=== PATIENT | female | born 1990 | race Two or more races ===

== ENCOUNTER 2025-09-05 10:10 | Outpatient (AMB) | payer OTHER, SELFPAY ==
--- NOTE | 2025-09-05 10:11 | MHC.OFFVIS ---
Vital Signs 09/05/25 10:18 Height 5 ft 2 in Weight 225 lb BMI 41.1 BP 102/78 Blood Pressure Location Rt brachial Position Sitting Respiration 16 Pulse 94 Pulse Source Pulse Oximeter Pulse Oximetry (%) 98 Oxygen Delivery Method Room Air Intake Visit Reasons: Re-Establish Care - Migraine Hvac Field Service Technician Required: No Allergies acetaminophen (From Vicodin) Allergy (Unknown, Verified 09/05/25 10:18) Unknown hydrocodone (From Vicodin) Allergy (Unknown, Verified 09/05/25 10:18) Unknown acetaminophen/codeine Allergy (Unknown, Uncoded 09/05/25 10:18) Unknown Medication List - Last Reconciled 09/05/25 by Alisha Gibson, CARLA acetazolamide ER 500 mg PO DAILY 30 days cetirizine 10 mg PO DAILY PRN cyclosporine 0.05% (Restasis) 1 drp ophthalmic (eye) BID drospirenone (contraceptive) (Slynd) 1 tab PO DAILY gabapentin 300 mg PO TID propranolol mg PO HPI Comments Details: Pietro is a 34-year-old female patient with a past medical history of anxiety, arthritis, cervical disc disease, BRITTON untreated, PCOS, and obesity presented today to establish care here at [facility]. I was previously following her at [facility]. To review, her headaches began a few years ago proximally 1 year after having a neck surgery. Her headaches have been almost daily associated with nausea, light sensitivity, and dizziness. She has historically had pain to the bifrontal areas and retro-orbital areas with sensations of eye pressure. Her eye exams have been reassuring in terms of disc edema. 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 Her prior workup has included an MRI of the brain and an MRA of the head which were performed 02/29/2024. Both these were normal studies. She did have a lumbar puncture with opening pressure of 29 in the past however this was in the setting of BRITTON and elevated BMI which can affect this value. She was however subsequently started on acetazolamide 250 mg twice daily for a trial. She has some paresthesias and had difficulty tolerating the medication though was able to continue on 250 mg twice daily. Her headaches are also accompanied by occipital notch tenderness and she has responded well in the past to occipital nerve blocks. Sleep has also been difficult and in the past she has had sleep studies significant for BRITTON. She says sleep Medicine in March of 2024 but was not able to tolerate CPAP therapy. For further prevention, she has been started on propranolol 10 maneuver limbs twice daily though it was not clear that there was any major benefit with this. We did discuss Botox therapy has a possibility moving forward. She was to continue on the propranolol in his acetazolamide until we could reestablish care here at [facility]. She tells me that she went to the eye doctor last week. She was told that she did not have abnormal pressure in her eyes but there was some noteworthy changes in the pressure of her blood vessels in her eyes. She has not been taking her acetaolemide in about 1 month as she had run out of refills and was not sure where to request them. She is currently experiencing holocephalic headaches described as a pressure sensation all around her head with particular pain to the occipital areas. She has light and sound sensitivity as well as some pulsatile tinnitus at times. She has not had any significant vision changes. She does have some mild worsening of headaches with a laying position. Past medication trials: Propranolol Acetazolamide Topiramate Gabapentin [facility] Medical History (Updated 09/05/25 @ 10:53 by Alisha Gibson CNP) Severe obesity PCOS (polycystic ovarian syndrome) BRITTON (obstructive sleep apnea) Chronic neck pain Migraine Surgical History (Updated 07/24/25 @ 09:38 by Berta Solares [facility]) S/P tonsillectomy and adenoidectomy S/P cervical discectomy Review of Systems Const All systems reviewed & are unremarkable except as noted in HPI and below Physical Exam Vital Signs: Last Vital Signs Pulse 94 09/05/25 10:18 Resp 16 09/05/25 10:18 BP 102/78 09/05/25 10:18 Pulse Ox 98 09/05/25 10:18 Oxygen Delivery Method Room Air 09/05/25 10:18 BMI result Body Mass Index 41.1 Const General: cooperative, healthy appearing, comfortable and no acute distress Nutritional Appearance: well nourished Orientation/consciousness: patient oriented x3 Limitations: no limitations HEENT Head: Yes normal to inspection and Yes normocephalic Eyes Other: Attempt at a funduscopic exam was unsuccessful. Difficulty seeing the back of the eye with traditional ophthalmoscope. (I will be obtaining notes from her recent ophthalmology exam). General: appearance normal, both eyes and all related structures Visual Pritchett: normal visual pritchett by confrontation Alignment and Position: alignment normal Periorbital: periorbital findings normal Eyelids: Yes eyelids normal Conjunctivae: conjunctivae normal Sclerae: sclerae normal Direct Ophthalmoscopy: normal light reflex Back/Spine/Pelvis Other: Bilateral occipital notch tenderness and trapezius tightening Neuro General: patient oriented x3 and deep tendon reflexes 2+ bilaterally Cranial nerves: Yes CN's II-XII intact bilaterally and Yes Facial sensation intact/muscles of mastication intact Cognition (Neuro): normal cognition Gait exam (Neuro): Normal gait present Motor exam (neuro): 5/5 motor strength present throughout and no tremor noted Sensory Exam: double simultaneous stimulation for sensation normal Romberg Test: Negative Pupils: Normal pupillary reactivity/response: bilateral Psych Appearance: grossly normal Mental Status: mental status grossly normal Speech and movement: Normal speech and movement present and Clear speech present Affect: normal affect Attitude: cooperative Thought process: Normal thought process present Thought content: Normal thought content present Insight: Good insight present (Psych) Judgement: Good judgement present (Psych) Assessment & Plan Assessment & Plan (1) IIH (idiopathic intracranial hypertension): Code(s): G93.2 - Benign intracranial hypertension Category: Medical (2) Chronic migraine without aura without status migrainosus, not intractable: Code(s): G43.709 - Chronic migraine without aura, not intractable, without status migrainosus Category: Medical (3) Tension headache: Code(s): G44.209 - Tension-type headache, unspecified, not intractable Category: Medical (4) Occipital neuralgia: Code(s): M54.81 - Occipital neuralgia Category: Medical Plan Pietro is a 34-year-old female patient with a past medical history of anxiety, arthritis, cervical disc disease, BRITTON untreated, PCOS, and obesity presented today to establish care here at [facility]. I was previously following her at [facility]. Her headaches are complex and certainly multifactorial. She has in the past been worked up for IIH with opening pressure of 29. Although this was in the setting of untreated BRITTON and obesity, still we pursue treatment. She was not able to tolerate higher doses of acetazolamide immediate release however has been on 12/08 twice daily and tolerated this well. She has however stopped taking this over the course of the last month as she ran out of refills. In the interim, headaches have increased. I will need to obtain recent ophthalmology exam. The plan for this will be to resume acetazolamide however I will try to start her on the extended release form 500 mg at bedtime to see if she can tolerate this better. Ideally, we would have her on 500 mg extended release twice daily if she can tolerate it. She also has some migrainous and tension-type headaches. Currently, her headaches are daily and accompanied by light and sound sensitivity as well as nausea. This fits criteria for chronic migraine though her chronic trigger points and occipital notch tenderness raise concern for tension-type component. We have exhausted many options for treatment as outlined above. She would like to pursue Botox therapy which I think is a reasonable option for her. I will put forth a prior authorization for this. In regards to her sleep, she does also have untreated sleep apnea as she was not able to tolerate CPAP therapy in the past. She follows with sleep Medicine. I do believe that his sleep is likely also playing a role in her headaches. -start acetazolamide 500 mg extended release at bedtime and if tolerated will increase to 500 mg extended release twice daily -obtain records from recent ophthalmology exam -start a prior authorization for Botox therapy for chronic migraine given that headaches are multifactorial -we will schedule appointment once Botox approval has been obtained. In the meantime, patient has been encouraged to utilize the patient portal for easier means of communication should any new symptoms or concerns arise Medications: New acetazolamide ER 500 mg PO DAILY 30 caps 2RF 30 days Coding Level of Care Code Est Pt Level 5 (82344) Diagnoses IIH (idiopathic intracranial hypertension) G93.2 Chronic migraine without aura without status migrainosus, not intractable G43.709 Tension headache G44.209 Occipital neuralgia M54.81
[2025-09-05 10:18] VITALS: BP 102/78; PULSE 94; RESP 16; O2SAT 98; BMI 41.1
--- OUTSIDE RECORDS SUMMARY | 2025-09-05 12:03 | XMS_ITS | Clinical Summary ---
Author Organization [facility] spital Address [address] [place] [address] Phone Care Team Providers Care Mineral Engineer Name Role Phone Zeferino Cowart MD Primary Care Provider + [phone] Zeferino Cowart MD Unavailable [phone] Zeferino Cowart MD Unavailable [phone] Sakina Shoemaker Unavailable Social History Tobacco Use Types Packs/Day Years Used Date Smoking Tobacco: Never Assessed Comments Unknown Sex and Gender Information Value Date Recorded Sex Assigned at Not on file Legal Sex Female 1:56 PM EDT Gender Identity Not on file Sexual Orientation Not on file Plan of Treatment Health Maintenance Due Date Last Done Comments Chlamydia and Gonorrhea Screening 1988 HIV Screening 1988 MMR Vaccines (1 of 1 - Stand ledy series) 1989 DTaP/Tdap/Td Vaccines (1 - Tdap) 1995 Anemia Screening 2000 Varicella Vaccines (1 of 2 - 13+ 2-dose series) 2001 Hepatitis C Screening 2006 Hepatitis B Vaccines (1 of 3 - 19+ 3-dose series) 2007 Influenza Vaccine (#1) 2025 HIB Vaccines Aged Out No longer eligi ble based on patient's age to complete this topic HPV Vaccines (No Doses Required) Completed Hepatitis A Vaccines Aged Out No long er eligible based on patient's age to complete this topic IPV Vaccines Aged Out No longer eligi ble based on patient's age to complete this topic Meningococcal B Vaccine Aged Out No l onger eligible based on patient's age to complete this topic Meningococcal Vaccine Aged Out No itz xiomy eligible based on patient's age to complete this topic Pneumococcal Vaccine: Pediat rics (0 to 5 Years) and At-Risk Patients (6 to 49 Years) Aged Out No longer eligible b ased on patient's age to complete this topic Rotavirus Vaccines Aged Out No longer eligible based on patient's age to complete this topic Procedures Procedure Name Priority Date/Time Associated Diagnosis Comments EXOME SEQUENCING, PARENT/FAMILY MEMBER SAMPLE, OP, 561D Routine 06/05/2025 1:12 PM EDT Family history of genetic disorder EXOME/GENOME SEQUENCING, PARENT/FAMILY MEMBER SAMPLE Routine 06/05/2025 1:12 PM EDT Family history of genetic disorder from Last 3 Months Results * Exome Sequencing, Parent/Family Member Sample (06/05/2025 1:12 PM EDT) Swab Buccal mucosa / Unknown Non-blood Collection / Unknown 06/05/2025 1:12 PM EDT 06/05/2025 1:12 PM EDT Traci Rangel MD LAB GENETICS ORDERABLES Final Re sult [facility] [address] [facility] [place] [address], [place] [phone] from Last 3 Months Insurance [facility] Care Teams Mineral Engineer Relationship Specialty Start Date End Date Zeferino Cowart MD [address] [place] [address] PCP - General 08/13/05 Zeferino Cowart MD [address] [place] [address] PCP - Clinical PCP 07/13/12 Zeferino Cowart MD [address] [place] [address] PCP - Insurance PCP 10/13/05 Sakina Shoemaker [id number] [facility] [address] [place] [address] PCP - Insurance Identified PCP 04/19/25
--- OUTSIDE RECORDS SUMMARY | 2025-09-05 12:03 | XMS_ITS | Data Portability ---
Author Organization [place] - [facility], Allergy Address [address] [address] Assessment Encounter Date Assessment Date Assessment LastModified by Organization Details LastModified Time 10/25/2024 10/25/2024 Patient has history of intracranial hypertension that is being followed conservatively. It is not clear if that is related to her shift in left side low-frequency hearing. She has had imaging studies of her brain with no retrocochlear pathology identified otherwise. I think it is reasonable to consider repeat audiometric testing in a year or sooner with any significant changes. Otherwise her physical examination demonstrated normal tympanic membrane with no effusion dplosky Not available 10/25/2024 15:39:57 Plan of Treatment Reminders Order Date Submit Date Provider Last Modified By Organization Details Last Modified Time Details Appointments Hearing Test 2024 10:00A M Hearing Test Not available Not available Not available Establish ed 15 2024 10:30A M CINDY GONZALES MD Not available Not available Not available Lab None recorded. Referral None recorded. Procedures None recorded. Surgeries None recorded. Imaging None recorded. Medication Orders None recorded. Patient TargetsNo targets recorded. Patient InstructionsNo instructions recorded. Reason for Referral None Reported. Results Created Date Observation Date Name Description Value Unit Range Abnormal Flag Note LastModifiedBy Organization Detail LastModifiedTime 10/26/20 24 audio gram No observ ation record ed. BARCODE Not Available 2023 09:38:47 Result Notes None recorded. 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 vocal cords; Note: Date Diagnosed: 04/14/2021 11:05 AM (J38.2) Not Available [facility] 4 02:57:10 Mass of neck 868255900 Active 2021 Localized swelling, mass and lump, neck; Note: Date Diagnosed: 11/04/2022 2:41 PM (R22.1) Not Available [facility] 4 02:57:07 Neck swelling 623079927 Active 2021 Localized swelling, mass and lump, neck; Note: Date Diagnosed: 11/04/2022 2:41 PM (R22.1) Not Available [facility] 4 02:57:07 Allergic rhinitis caused by pollen 55000640 Active 2022 Allergic rhinitis due to pollen; Note: Date Diagnosed: 12/29/2022 4:39 PM (J30.1) Not Available [facility] 4 02:57:07 Nasal congestio n 11925815 Active 2022 Nasal congestion ; Note: Date Diagnosed: 12/29/2022 4:39 PM (R09.81) Not Available [facility] 4 02:57:11 Sensorine ural hearing loss 99365457 Active 2023 Siri gan [place] - [facility] 4 15:14:43 Problem Notes None recorded. Procedures Surgical History Date Name Laterality Status Provider Name and Address Organization Details Recorded Time 10/25/20 24 Comp Audio with Tymps - 21596 & 80536 completed Siri Llanos [place] - [facility] 10/25/2024 15:14:19 10/25/20 24 OAE distortion product, comprehensive - 75808 completed Siri Llanos [place] - [facility] 10/25/2024 15:14:29 Imaging Results None recorded. Procedure Notes None recorded. Medical Equipment None Reported. Allergies Allergen ID Allergen Name Allergen Category Reaction Reaction Severity Criticality Documentation Date Start Date Code Code System Note Provider Name and Address Organization Details Recorded Time 831425 Reglan medicatio n other Not available Not available 03/27/2024 9230 RxNorm React ion: Unkno wn; Not Available [facility] 4 01:15:06 524563 metformin medicatio n other Not available Not available 03/27/2024 6809 RxNorm React ion: Unkno wn; Not Available [facility] 4 01:15:06 695401 acetamino phen / hydrocodo ne medicatio n other Not available Not available 03/27/2024 37834 2 RxNorm React ion: Unkno wn; Not Available [facility] 4 01:15:08 Medications Name Sig Start Date Stop Date Status Note LastModified by Organization Details LastModified Time acetazola mide 250 mg tablet TAKE ONE TABLET BY MOUTH TWICE A DAY active Not Available Not Available No t Available tramadol 50 mg tablet TAKE ONE TABLET BY MOUTH EVERY 6 TO 8 HOURS NEEDED FOR PAIN DO NOT DRIVE WHILE TAKING THIS MEDICATI ON active Not Available Not Available No t Available trazodone 100 mg tablet TAKE ONE TABLET BY MOUTH EVERY DAY AT BEDTIME NEEDED FOR SLEEP active Not Available Not Available No t Available meclizine 25 mg tablet 06/13 completed Medicati on ID: [id number] B rand Name: candace nguyen Send Method: E-Prescr ibed Sub s Allowed: subs OK Medic ationGen ericName : meclizin e Not Available Not Available Not Available gabapenti n 300 mg capsule TAKE ONE CAPSULE BY MOUTH THREE TIMES A DAY WITH MEALS active Not Available Not Available No t Available methylpre dnisolone 4 mg tablets in a dose pack TAKE SIX TABLETS FOR 1 DAY, THEN FIVE TABLETS FOR 1 DAY, THEN FOUR TABLETS FOR 1 DAY,THEN THREE TABLETS FOR 1 DAY, THEN TWO TABLETS FOR 1 DA active Not Available Not Available No t Available naproxen 500 mg tablet TAKE ONE TABLET BY MOUTH TWICE A DAY NEEDED FOR PAIN WITH FOOD active Not Available Not Available No t Available Ventolin HFA 90 mcg/actua tion aerosol inhaler INHALE 2 PUFFS EVERY 6 HOURS active Not Available Not Available No t Available neomycin- polymyxin -hydrocor t 3.5 mg-10,000 unit/mL-1 % ear drops,gurvinder p INSTILL 4 DROPS IN LEFT EAR 4 TIMES DAILY FOR 7 DAYS active Not Available Not Available No t Available cyclobenz aprine 5 mg tablet TAKE ONE TABLET BY MOUTH EVERY DAY AT BEDTIME active Not Available Not Available No t Available Restasis 0.05 % eye drops in a dropperet te INSTILL ONE DROP TO BOTH EYES TWICE A DAY active Not Available Not Available No t Available topiramat e 50 mg tablet TAKE 1/2 OF A TABLET BEFORE BED FOR 1 WEEK, THEN TAKE 1/2 A TABLET TWICE A DAY FOR 1 WEEK, THEN TAKE 1/2 A TABLET IN THE MORNING AND 1 TABLE active Not Available Not Available No t Available Vitals Date Recorded Body height Body mass index (BMI) Body weight Provider Name and Address Organization Details Last Updated DateTime 10/25/2024 157.48 cm 42.1 kg/m2 127866.25 g Bernie Hummel [place] - [facility] 10/25/2024 15:27:02 Social History None recorded. Functional Status None recorded. Mental Status None recorded. Family History Nothing Reported. Medical History No medical history recorded. Gynecological HistoryNo gynecological history recorded. Obstetrics History GPAL:G 0 P 0 0 0 0 Past Encounters Encounter ID Performer Location Encounter Start Date Encounter Closed Date Diagnosis/Indication Diagnosis SNOMED-CT Code Diagnosis ICD10 Code Diagnosis IMO Codes Diagnosis Note [id number] CINDY GONZALES MD [facility] [address] [address] 10/25/2024 14:31:42 10/25/2024 15:40:11 Sensorineural hearing loss 86850109 H90.42 Audiologic al evaluation results: Right ear: Normal hearing with excellent word recognitio n. Left ear: Essentiall y mild low frequency SNHL raising to WNL with excellent word recognitio n. Tympanomet ry: Right Ear:Type A Left Ear:Type As Distortion Product Otoacousti c Emission Testing Results: Right Ear:Normal at 1.5, 2, 3, 4, 5, 6, 7, 8, 9 kHz Left Ear:Normal at 1.5, 2, 3, 4, 5, 6, 7, 8, 9, 10, 11, 12 kHzThe presence of a normal otoacousti c emission is consistent with normal outer hair cell function at the test frequency. Health Concerns Section Related Observation LastModified by Organization Detai ls LastModified Time None Recorded Concern Status LastModified by Organization Details LastModified Time None Recorded Advance Directives Directive None Recorded Payers Insurance Date Sequence Insurance Name Policy Number Policy Schneider Covered Member ID Schneider Member ID Guarantor Name 10/25/[address] [place] [address] [id number] Pietro Leung [id number] Pietro Leung Notes Date Note Type Note Provider Name and Address Organization Details Recorded Time 10/25/2024 text/html ROS as noted in the HPI left decreased hearingonset Sep 19, 2024 associated with flightfelt there was a pop but pressure didnt fully restore hearing 12/15/22 nasopharynx bx, Romulo, benign 06/13/23 Allergy skin test - mild positive to weeds, dust, mold. Moderate to dog CINDY GONZALES MD [address] [place] [address], [phone], [facility] - [facility] 10/25/2024 15:40:11 OBGyn Episode No OBEpisode recorded.
--- OUTSIDE RECORDS SUMMARY | 2025-09-05 12:03 | XMS_ITS | Clinical Summary ---
Author Organization 175 [facility] Address [address] [place] [address] Phone Care Team Providers Care Site Head Name Role Phone Elif Trujillo MD Primary Care Provider + Allergies Active Allergy Reactions Criticality Noted Date Comments Codeine Hives,Unknown 06/26/2019 Hydrocodone Unknown 06/26/2019 Hydrocodone-Acetaminophen Hives 04/19/2025 Metformin 04/19/2025 Other Reaction(s): Abdominal pain, diarrhea Metoclopramide Unknown 06/26/2019 Other Reaction(s): Hot flashes Medications acetaZOLAMIDE (DIAMOX) 125 mg tablet Take 1 tablet (125 mg total) by mouth 1 (one) time each day. Active cetirizine (ZyrTEC) 10 mg capsule Take 1 capsule (10 mg total) by mouth. 10/26/2024 Active Restasis 0.05 % ophthalmic emulsion instill one drop to both eyes twice a day 04/11/2025 Active Slynd 4 mg (28) tablet TAKE ONE TABLET BY MOUTH EVERY DAY SKIP PLACEBOS AT THE END OF EACH PACK UNTIL THE THIRD PACK THEN REPEAT THE CYCLE Active propranoloL (INDERAL) 10 mg tablet Take 3 tablets (30 mg total) by mouth. 02/15/2025 Active Active Problems Problem Noted Date Diagnosed Date Cervical spinal stenosis due to adjacent segment disease after fusion procedure 04/19/2025 Assessment & Plan (08/09/2025 4:40 PM EDT): Ms. Ramos had an adverse reaction to her cervical injection and no clear benefit so, we will not repeat that as a treatment option for her ongoing symptoms. At this point, I would be hesitant to recommend any further cervical surgery as she clearly states that her issues began after her C4-5 ACDF 3 years ago. I cannot guarantee that treating either C3-4 or C6-7 will alleviate her symptoms and not create any new ones. She will follow-up in the PCP office to discuss her shaking and palpitations after her bandages removed and the description of orthostatic hypotension after seeing orthopedics. Assessment & Plan (07/11/2025 3:09 PM EDT): Ms. Ramos has a central disc herniation at C3-4 which at this point, I would leave untreated as she is not overtly myelopathic. The profound pain across her scapula may be referable to degenerative changes at C6-7. I am going to send her for a C6-7 ADALGISA through interventional radiology and she is welcome to try lidocaine patches. Rolling on a tennis ball and/or seeing a massage therapist should help to relieve the knots in the muscles. Assessment & Plan (04/19/2025 5:55 PM EDT): I reviewed the imaging studies in detail with Ms. Ramos noting central disc herniation at C3-4 indenting the midline ventral cord with overall moderate stenosis. I am not in receipt of the prior study but this report states that the herniation size has increased compared to the preoperative study. She describes symptoms of myelopathy though she is not grossly allopathic on exam and has no signal change in the cord. This makes the situation a little tricky because, though it is not an emergency, the overall stenosis and cord deformation can lead to cord injury if it progresses or she has an injury. Patients often describe a feeling of their head being too heavy to hold up with this type of degenerative disc disease but she does have other sources of headache. Believe the cervical spondylosis explains her neck pain and some of the headache and may cause the arm symptoms when she is in certain positions. We discussed the details, risks and benefits of a C3-4 ACDF including but not limited to short or long-term dysphagia due to injury to the hypoglossal nerve, hopefully temporary postoperative sore throat and pulling, the risk of new or worsening arm pain, paresthesias or weakness as well as the risk of vocal cord paralysis given that I would approach the surgery from the right side and her previous fusion was from a left-sided approach. If she decides to proceed with surgery, I would like to have her evaluated by ENT to look at her vocal cord mobility. She is going to consider her options and let us know if she wishes to proceed. Pseudotumor cerebri syndrome 04/19/2025 Assessment & Plan (07/11/2025 3:07 PM EDT): Ms. Ramos feels that her headaches are little better since the recent round of injections including Botox and she is tolerating a reduced dose of Diamox. She correlates the dose of Diamox with tingling in her hands. If her pseudotumor symptoms are controlled on it then, I would agree with continuing Diamox. Assessment & Plan (04/19/2025 5:59 PM EDT): Ms. Ramos says she was diagnosed with increased intracranial pressure so, I reviewed the typical symptoms and treatment for pseudotumor cerebri. She is taking Diamox and, as far as she recalls, she did not improve after the lumbar puncture. I would not recommend placement of a shunt unless we saw clear evidence that her headache improved after high-volume LP. We are going to request the records from her neurologist at [facility] and the receiving manager who stated that she had swelling behind her left eye, presumably papilledema. I also strongly encouraged her to begin a significant weight loss program as the typical patient with pseudotumor is a young, obese female. It is not surprising that the symptoms recurred if she was originally diagnosed with this in her 20s when she weighed 50 pounds less. I shared with her that I have had patients where we removed the LP shunt as it was no longer needed after they lost weight. Encounters Date Type Department Care Team Description 08/09/2025 3:30 PM EDT Office Visit Neurosurgery [facility] [address] [facility] [address] [place] [phone] Ileana Collazo MD Cervical spinal stenosis due to adjacent segment disease after fusion procedure (Primary Dx) 08/05/2025 Telephone Neurosurgery [facility] [address] [facility] [address] [place] [address] Betty Ordoñez MA 07/28/2025 8:30 PM EDT - 07/29/2025 12:22 AM EDT Emergency [facility] Emergency [address] [place] [address] Dana Hsu MD Generalized weakness (Primary Dx) Discharge Disposition: Home or Self Care 07/26/2025 9:00 AM EDT - 07/26/2025 11:59 PM EDT Hospital Encounter [facility] Interventional Radiology [address] [place] [address] Cervical spinal stenosis due to adjacent segment disease after fusion procedure Discharge Disposition: Home or Self Care 07/11/2025 2:15 PM EDT Office Visit Neurosurgery [facility] [address] [facility] [address] [place] [address] Ileana Collazo MD Pseudotumor cerebri syndrome (Primary Dx); Cervical spinal stenosis due to adjacent segment disease after fusion procedure from Last 3 Months Surgical History Surgery Date Site/Laterality Comments TONSILLECTOMY ADENOIDECTOMY, BILATERAL MYRINGOTOMY AND TUBES CERVICAL SPINE SURGERY acdf C4-5 Medical History Medical History Date Comments Anxiety Depression Social History Tobacco Use Types Packs/Day Years Used Date Smoking Tobacco: Never Assessed Comments Unknown Sex and Gender Information Value Date Recorded Sex Assigned at Not on file Legal Sex Female 8:25 AM EST Gender Identity Not on file Sexual Orientation Not on file Obstetrics History Last Filed Vital Signs Vital Sign Reading Time Taken Comments Blood Pressure 106/79 07/28/2025 8:56 PM EDT Pulse 73 07/28/2025 8:56 PM EDT Temperature 37.5 C (99.5 F) 07/28/2025 8:56 PM EDT Respiratory Rate 16 07/28/2025 8:56 PM EDT Oxygen Saturation 99% 07/28/2025 8:56 PM EDT Inhaled Oxygen Concentration - - Weight 99.8 kg (220 lb) 07/28/2025 7:19 PM EDT Height 157.5 cm (5' 2 ) 07/28/2025 7:19 PM EDT Body Mass Index 40.24 07/28/2025 7:19 PM EDT Plan of Treatment Health Maintenance Due Date Last Done Comments Hepatitis B Vaccines (1 of 3 - 19+ 3-dose series) 2007 HPV Vaccines (2 - 3-dose series) 02/13/2009 01/16/2009 Cervical Cancer Screening: Pap Smear 2009 Cholesterol Screening (Lipid Panel) 10/17/2022 HIV Screening 10/17/2022 Hepatitis C Screening 10/17/2022 Social Influencers of Health Screening 10/17/2022 Depression Screening 11/14/2024 COVID-19 Vaccine ( season) 2025 11/21/2021, 03/06/2021, 02/06/2021 Influenza Vaccine (#1) 2025 , 08/01/2019, 10/13/2018, Additional history exists DTaP,Tdap,and Td Vaccines (3 - Td or Tdap) 04/10/2029 04/10/2019, 10/21/2017 RSV Immunization Adult Patients (1 - 1-dose 75+ series) 2063 HIB Vaccines Aged Out No longer eligi ble based on patient's age to complete this topic Hepatitis A Vaccines Aged Out No long er eligible based on patient's age to complete this topic IPV Vaccines Aged Out No longer eligi ble based on patient's age to complete this topic MMR Vaccines Aged Out No longer eligi ble based on patient's age to complete this topic Meningococcal ACWY Vaccine Aged Out N o longer eligible based on patient's age to complete this topic Meningococcal B Vaccine Aged Out No l onger eligible based on patient's age to complete this topic Pneumococcal Vaccine: Pediatrics (0 to 5 Years) and At-Risk Patients (6 to 49 Years) Aged Out No longer eligible based on patient's age to complete this topic RSV Immunization Patients Under 20 months Aged Out No longer eligible based on patient's age to complete this topic Varicella Vaccines Aged Out No longer eligible based on patient's age to complete this topic Procedures Procedure Name Priority Date/Time Associated Diagnosis Comments ECG ANNOTATED 07/30/2025 CT CERVICAL SPINE WO CONTRAST STAT 07/28/2025 9:[address] HEAD WO CONTRAST STAT 07/28/2025 9 :44 PM EDT RESPIRATORY VIRUS PANEL MOLECULAR STUDY STAT 07/28/2025 7:42 PM EDT HCG, SERUM, QUALITATIVE STAT Add-on 07/28/2025 7:41 PM EDT CBC WITH AUTO DIFFERENTIAL STAT 07/28/2025 7:41 PM EDT LIPASE STAT 07/28/2025 7:41 PM EDT TROPONIN I HIGH SENSITIVITY Timed 07/28/2025 7:41 PM EDT COMPREHENSIVE METABOLIC PANEL STAT 07/28/2025 7:41 PM EDT MAGNESIUM STAT 07/28/2025 7:41 PM EDT CBC AND DIFFERENTIAL STAT 07/28/2025 7:41 PM EDT ECG 12-LEAD STAT 07/28/2025 7:28 PM EDT IR CERVICAL THORACIC EPIDURAL W GUIDANCE Routine 07/26/2025 12:54 PM EDT Cervical spinal stenosis due to adjacent segment disease after fusion procedure from Last 3 Months Results * ECG-Annotated (07/30/2025) us Provider Onbase MD ECG ORDERABLES Final Result * CT Cervical Spine wo Contrast (07/28/2025 9:44 PM EDT) Anatomical Region Laterality Modality Spine, C-spine Computed Tomogra phy 07/28/2025 10:2 6 PM EDT Impressions 07/28/2025 10:26 PM EDT Cervical spine is intact. Prior C4-C5 anterior cervical discectomy and fusion. No acute findings. This document has been electronically signed by: Kimani Andujar MD on 07/28/2025 22:26:34 Narrative 07/28/2025 10:26 PM EDT INDICATION: Neck pain, acute, no red flags CT cervical spine without contrast Comparison: MR/SR - CERVICAL SPINE MR OUTSIDE EXAMINATION - 03/26/25 20:20 EDT Findings: Prior C4-C5 anterior cervical discectomy and fusion. Vertebral alignment is within normal limits. Vertebral body heights are preserved. No evidence of acute fracture or subluxation. Mild multilevel posterior disc osteophyte complex formation. No acute findings on limited view of the intracranial contents. No cervical fluid collections or masses. No consolidation or effusion at the lung apices. Procedure Note Kimani Andujar - 07/28/2025 INDICATION: Neck pain, acute, no red flags CT cervical spine without contrast Comparison: MR/SR - CERVICAL SPINE MR OUTSIDE EXAMINATION - 03/26/2520:20 EDT Findings: Prior C4-C5 anterior cervical discectomy and fusion. Vertebral alignment is within normal limits. Vertebral body heights are preserved. No evidence of acute fracture or subluxation. Mild multilevel posterior disc osteophyte complex formation. No acute findings on limited view of the intracranial contents. No cervical fluid collections or masses. No consolidation or effusion at the lung apices. IMPRESSION: Cervical spine is intact. Prior C4-C5 anterior cervical discectomy and fusion. No acute findings. This document has been electronically signed by: Kimani Andujar MD on 07/28/2025 22:26:34 Dana Hsu MD IM CT PROCEDURES Final Result * CT Head wo Contrast (07/28/2025 9:44 PM EDT) Anatomical Region Laterality Modality Head and Neck Computed Tomogra phy 07/28/2025 10:2 4 PM EDT Impressions 07/28/2025 10:24 PM EDT 1. No acute intracranial findings. This document has been electronically signed by: Kimani Andujar MD on 07/28/2025 22:24:50 Narrative 07/28/2025 10:24 PM EDT INDICATION: Dizziness, non-specific CT head without contrast Comparison: None provided Findings: No intra-axial mass, midline shift, hydrocephalus, or acute hemorrhage. No significant atrophy-like change or white matter disease. There is no sinus or mastoid fluid. The orbits are unremarkable. No skull fracture. Procedure Note Kimani Andujar - 07/28/2025 INDICATION: Dizziness, non-specific CT head without contrast Comparison: None provided Findings: No intra-axial mass, midline shift, hydrocephalus, or acute hemorrhage. No significant atrophy-like change or white matter disease. There is no sinus or mastoid fluid. The orbits are unremarkable. No skull fracture. IMPRESSION: 1. No acute intracranial findings. This document has been electronically signed by: Kimani Andujar MD on 07/28/2025 22:24:50 Dana Hsu MD [facility] CT PROCEDURES Final Result * Respiratory virus panel molecular study (07/28/2025 7:42 PM EDT) Adenovirus Detection by PCR Not Detected Not Detected LAB MICROBIOLOGY METHOD 07/28/2025 9:15 PM EDT [facility] Influenza A PCR Not Detected Not Detected LAB MICROBIOLOGY METHOD 07/28/2025 9:15 PM EDT [facility] Influenza B PCR Not Detected Not Detected LAB MICROBIOLOGY METHOD 07/28/2025 9:15 PM EDT [facility] Coronavirus 229E Not Detected Not Detected LAB MICROBIOLOGY METHOD 07/28/2025 9:15 PM EDT [facility] Coronavirus HKU1 Not Detected Not Detected LAB MICROBIOLOGY METHOD 07/28/2025 9:15 PM EDT [facility] Coronavirus OC43 Not Detected Not Detected LAB MICROBIOLOGY METHOD 07/28/2025 9:15 PM EDT [facility] Coronavirus NL63 Not Detected Not Detected LAB MICROBIOLOGY METHOD 07/28/2025 9:15 PM EDT [facility] Parainfluenza Virus 1 Not Detected Not Detected LAB MICROBIOLOGY METHOD 07/28/2025 9:15 PM EDT [facility] Parainfluenza Virus 2 Not Detected Not Detected LAB MICROBIOLOGY METHOD 07/28/2025 9:15 PM EDT [facility] Parainfluenza Virus 3 Not Detected Not Detected LAB MICROBIOLOGY METHOD 07/28/2025 9:15 PM EDT [facility] Parainfluenza Virus 4 Not Detected Not Detected LAB MICROBIOLOGY METHOD 07/28/2025 9:15 PM EDT [facility] RSV PCR Not Detected Not Detected LAB MICROBIOLOGY METHOD 07/28/2025 9:15 PM EDT [facility] Human Metapneumovirus A and B Not Detected Not Detected LAB MICROBIOLOGY METHOD 07/28/2025 9:15 PM EDT [facility] Rhinovirus/Entero virus Not Detected Not Detected LAB MICROBIOLOGY METHOD 07/28/2025 9:15 PM EDT [facility] Bordetella pertussis Not Detected Not Detected LAB MICROBIOLOGY METHOD 07/28/2025 9:15 PM EDT [facility] Bordetella parapertussis Not Detected Not Detected LAB MICROBIOLOGY METHOD 07/28/2025 9:15 PM EDT [facility] Mycoplasma pneumo by PCR Not Detected Not Detected LAB MICROBIOLOGY METHOD 07/28/2025 9:15 PM EDT [facility] Chlamydia pneumoniae Not Detected Not Detected LAB MICROBIOLOGY METHOD 07/28/2025 9:15 PM EDT [facility] SARS COV-2 Not Detected Not Detected LAB MICROBIOLOGY METHOD 07/28/2025 9:15 PM EDT [facility] Swab Both anterior nares / Unknown Non-blood Collection / Unknown 07/28/2025 7:42 PM EDT 07/28/2025 8:20 PM EDT [facility] - 07/28/2025 9:15 PM EDT Testing was performed using the Spark[employer] Respiratory Pathogen PCR Assay. All results must be correlated with the clinical findings. Results should not be used as the sole basis for diagnosis. False Negative results may occur from the presence of sequence variants in the region targeted by the assay or the presence of inhibitors. Results may be affected by concurrent antiviral/antimicrobial therapy or levels of organisms that are below the limit of detection. Dana Hsu MD LAB MICROBIOLOGY - GENERAL ORD ERABLES Final Result Performing Organization Address City/[facility]/ZIP Co de Phone Number [facility] [address] [place] [address], [place] [phone] * Troponin I high sensitivity (07/28/2025 7:41 PM EDT) [facility] High Sensitivity Troponin I 4 <=54 ng/L LAB CHEMISTRY METHOD 07/28/2025 8:53 PM EDT [facility] Blood Venous blood specimen / Unknown Venipuncture / Unknown 07/28/2025 7:41 PM EDT 07/28/2025 8:21 PM EDT Narrative [facility] - 07/28/2025 8:53 PM EDT High levels of biotin in samples may falsely decrease hsTroponin values. Use caution when interpreting hsTroponin results in patients taking biotin who exhibit renal impairment (eGFR <60) or in patients taking more than 20 mg/day of biotin. Dana Hsu MD LAB BLOOD ORDERABLES Final Res ult Performing Organization Address [facility]/ZIP Co de Phone Number [facility] [address] [place] [address], [place] [phone] * (ABNORMAL) CBC auto differential (07/28/2025 7:41 PM EDT) [facility] WBC 12.0(H) 4.8 - 10.8 K/mcL LAB HEMETOLOGY METHOD 07/28/2025 8:37 PM EDT [facility] RBC 4.10 3.80 - 4.80 M/mcL LAB HEMETOLOGY METHOD 07/28/2025 8:37 PM EDT [facility] Hemoglobin 11.0(L) 11.5 - 16.0 g/dL LAB HEMETOLOGY METHOD 07/28/2025 8:37 PM EDT [facility] Hematocrit 35.0 35.0 - 47.0 % LAB HEMETOLOGY METHOD 07/28/2025 8:37 PM EDT [facility] MCV 84.7 79.0 - 98.0 FL LAB HEMETOLOGY METHOD 07/28/2025 8:37 PM EDT [facility] MCH 26.6(L) 27.0 - 32.0 pcg LAB HEMETOLOGY METHOD 07/28/2025 8:37 PM EDT [facility] MCHC 31.4(L) 32.0 - 37.0 g/dL LAB HEMETOLOGY METHOD 07/28/2025 8:37 PM EDT [facility] RDW 13.9 11.0 - 15.0 % LAB HEMETOLOGY METHOD 07/28/2025 8:37 PM EDT [facility] Platelets 321 130 - 400 K/mcL LAB HEMETOLOGY [facility]/28[facility]25 [facility] MPV 11.4(H) 7.0 - 11.0 FL LAB HEMETOLOGY METHOD 07/28/2025 8:37 PM EDT [facility] NRBC 0.0 <1.0 % LAB HEMETOLOGY METHOD 07/28/2025 8:37 PM EDT [facility] NRBC Absolute 0.00 <0.10 K/mcL LAB HEMETOLOGY METHOD 07/28/2025 8:[facility] Neutrophils Relative 55.7 % LAB HEMETOLOGY METHOD 07/28/2025 8:37 PM EDT [facility] Lymphocytes Relative 36.1 % LAB HEMETOLOGY METHOD 07/28/2025 8:37 PM EDT [facility] Monocytes Relative 6.7 % LAB HEMETOLOGY METHOD 07/28/2025 8:37 PM EDT [facility] Eosinophils Relative 0.4 % LAB HEMETOLOGY METHOD 07/28/2025 8:37 PM EDT [facility] Basophils Relative 0.7 % LAB HEMETOLOGY METHOD 07/28/2025 8:37 PM EDT [facility] Immature Granulocytes Relative 0.4 % LAB HEMETOLOGY METHOD 07/28/2025 8:37 PM EDT [facility] Neutrophils Absolute 6.69 1.50 - 7.00 K/mcL LAB HEMETOLOGY METHOD 07/28/2025 8:37 PM EDT [facility] Lymphocytes Absolute 4.33 1.00 - 5.00 K/mcL LAB HEMETOLOGY METHOD 07/28/2025 8:37 PM EDT [facility] Monocytes Absolute 0.80 0.20 - 1.00 K/mcL LAB HEMETOLOGY METHOD 07/28/2025 8:37 PM EDT [facility] Eosinophils Absolute 0.05 0.00 - 0.50 K/mcL LAB HEMETOLOGY METHOD 07/28/2025 8:37 PM EDT [facility] Basophils Absolute 0.08 0.00 - 0.20 K/mcL LAB HEMETOLOGY METHOD 07/28/2025 8:37 PM EDT [facility] Immature Granulocytes Absolute 0.05(H) 0.00 - 0.03 K/mcL LAB HEMETOLOGY METHOD 07/28/2025 8:37 PM EDT [facility] Blood Venous blood specimen / Unknown Venipuncture / Unknown 07/28/2025 7:41 PM EDT 07/28/2025 8:20 PM EDT us Dana Hsu MD LAB BLOOD ORDERABLES Final Res ult [facility] [address] [place] [address], * hCG, serum, qualitative (07/28/2025 7:41 PM EDT) hCG Qual Negative Negative 07/28/2025 9:49 PM EDT [facility] Blood Venous blood specimen / Unknown Venipuncture / Unknown 07/28/2025 7:41 PM EDT 07/28/2025 8:20 PM EDT us Dana Hsu MD LAB BLOOD ORDERABLES Final Res ult Performing Organization Address City/[facility]/ZIP Co de Phone Number [facility] [address] [place] [address], [place] [phone] * Magnesium (07/28/2025 7:41 PM EDT) Magnesium 2.3 1.9 - 2.6 mg/dL LAB CHEMISTRY METHOD 07/28/2025 8:46 PM EDT [facility] Blood Venous blood specimen / Unknown Venipuncture / Unknown 07/28/2025 7:41 PM EDT 07/28/2025 8:20 PM EDT us Dana Hsu MD LAB BLOOD ORDERABLES Final Res ult Performing Organization Address [facility]/ZIP Co de Phone Number [facility] [address] [place] [address], [place] [phone] * Lipase (07/28/2025 7:41 PM EDT) Lipase 31 13 - 75 unit/L LAB CHEMISTRY METHOD 07/28/2025 8:46 PM EDT [facility] Blood Venous blood specimen / Unknown Venipuncture / Unknown 07/28/2025 7:41 PM EDT 07/28/2025 8:20 PM EDT us Dana Hsu MD LAB BLOOD ORDERABLES Final Res ult [facility] [address] [place] [address], [place] [phone] * (ABNORMAL) Comprehensive metabolic panel (07/28/2025 7:41 PM EDT) [facility] Sodium 139 133 - 145 mmol/L LAB CHEMISTRY METHOD 07/28/2025 8:46 PM [facility] Potassium 3.7 3.5 - 5.5 mmol/L LAB CHEMISTRY METHOD 07/28/2025 8:46 PM [facility] Chloride 110 96 - 110 mmol/L LAB CHEMISTRY METHOD 07/28/2025 8:46 PM [facility] CO2 24 21 - 32 mmol/L LAB CHEMISTRY METHOD 07/28/2025 8:46 PM [facility] Anion Gap 5 3 - 11 LAB CHEMISTRY METHOD 07/28/2025 8:46 PM [facility] Glucose 111(H) 70 - 100 mg/dL LAB CHEMISTRY METHOD 07/28/2025 8:46 PM [facility] BUN 11 5 - 25 mg/dL LAB CHEMISTRY METHOD 07/28/2025 8:46 PM [facility] Creatinine 0.78 0.50 - 1.10 mg/dL LAB CHEMISTRY METHOD 07/28/2025 8:46 PM [facility] eGFR 101 >=60 mL/min/1. 73m2 LAB CHEMISTRY METHOD 07/28/2025 8:46 PM [facility] Comment:Calculation based on the Chronic Kidney Disease Epidemiology Collaboration (CKD-EPI) equation refit without adjustment for race. BUN/Creatinine Ratio 14.1 LAB CHEMISTRY METHOD 07/28/2025 8:46 PM [facility] Calcium 9.3 8.5 - 10.5 mg/dL LAB CHEMISTRY METHOD 07/28/2025 8:46 PM [facility] AST (SGOT) 10 10 - 42 unit/L LAB CHEMISTRY METHOD 07/28/2025 8:46 PM [facility] ALT (SGPT) 21 10 - 60 unit/L LAB CHEMISTRY METHOD 07/28/2025 8:46 PM EDT [facility] Alkaline Phosphatase 120 42 - 121 unit/L LAB CHEMISTRY METHOD 07/28/2025 8:46 PM EDT [facility] Total Protein 6.7 6.0 - 8.0 g/dL LAB CHEMISTRY METHOD 07/28/2025 8:46 PM EDT [facility] Albumin 3.7 3.2 - 5.0 g/dL LAB CHEMISTRY METHOD 07/28/2025 8:46 PM EDT [facility] Total Bilirubin 0.2 0.0 - 1.4 mg/dL LAB CHEMISTRY METHOD 07/28/2025 8:46 PM EDT [facility] Blood Venous blood specimen / Unknown Venipuncture / Unknown 07/28/2025 7:41 PM EDT 07/28/2025 8:20 PM EDT Dana Hsu MD LAB BLOOD ORDERABLES Final Res ult Performing Organization Address City/State/[facility] Co de Phone Number [facility] [address] [place] [address], [place] [phone] * ECG 12 lead (07/28/2025 7:28 PM EDT) Ventricular Rate ECG 68 BPM GEMUSE Atrial Rate 68 BPM GEMUSE P-R Interval 140 ms GEMUSE QRS Duration 84 ms GEMUSE Q-T Interval 410 ms GEMUSE QTc 435 ms GEMUSE P Wave [place] 59 degrees GEMUSE R [place] 18 degrees GEMUSE T [place] 32 degrees GEMUSE ECG Interpretation Normal sinus rhythm Normal ECG No previous ECGs available Confirmed by Ld HUFFMAN [email or web address] ([id number]) on 07/28/2025 8:29:16 PM GEMUSE 07/28/2025 7:28 PM EDT 07/28/2025 8:29 PM EDT Dana Hsu MD ECG ORDERABLES Final Result GEMUSE * IR Cervical Thoracic Epidural w Guidance (07/26/2025 12:54 PM EDT) Anatomical Region Laterality Modality Thoracic spine N/A Interventional R adiology 07/26/2025 7:53 PM EDT Impressions 07/26/2025 7:[address]-guided C6-C7 interlaminar steroid injection. -------- FINAL REPORT -------- Dictated By: Gertrudis Odell Dictated Date: 07/26/2025 19:53 ET Assigned Physician: Gertrudis Odell Reviewed and Electronically Signed By: Gertrudis Odell Signed Date: 07/26/2025 19:57 ET Workstation ID: [id number] Transcribed By: Self Edit Transcribed Date: 07/26/2025 19:53 ET Narrative 07/26/2025 7:57 PM EDT INDICATION: Neck pain with bilateral upper extremity radiculopathy PROCEDURE: Consent obtained for CT-guided cervical interlaminar steroid injection at the C6-C7 levels under moderate sedation. prior relevant studies: Cervical spine MRI from outside facility dated March 26, 2025 MEDICATIONS: Local anesthesia: 2% buffered lidocaine administered subcutaneously. Sedation: Moderate intravenous sedation was initiated and maintained for 40 minutes while the patient was independently monitored by the radiology nurse under the supervision of the interventional radiologist. A total of 5 mg of Versed and 100 mcg of fentanyl administered during the procedure. Steroid: 6 mg of betamethasone (1 mL) Scanner: JayCut speed 4 slice VCT Dose reduction technique: ASIR (Adaptive statistical iterative reconstruction) and/or AEC (automated exposure control) Dose: total exam DLP 674 mGY per cm TECHNIQUE: Patient placed supine on the CT table and multiple axial images obtained of the cervical region. Once the appropriate level was localized the skin was marked, draped and prepped. Timeout performed and then local anesthetic administered. Under CT fluoroscopic guidance a 22-gauge spinal needle was advanced up to the localized C6-C7 level using interlaminar approach. Small amount of contrast injected from the needle with initial imaging demonstrates contrast along the lamina. Needle than advanced with repeat injection demonstrating opacification of the epidural space. Procedure Note Gertrudis Odell MD - 07/26/2025 INDICATION: Neck pain with bilateral upper extremity radiculopathy PROCEDURE: Consent obtained for CT-guided cervical interlaminar steroidinjection at the C6-C7 levels under moderate sedation. prior relevant studies: Cervical spine MRI from outside facility dated 2024 MEDICATIONS: Local anesthesia: 2% buffered lidocaine administered subcutaneously. Sedation: Moderate intravenous sedation was initiated and maintained for40 minutes while the patient was independently monitored by the radiologynurse under the supervision of the interventional radiologist. A total of5 mg of Versed and 100 mcg of fentanyl administered during theprocedure. Steroid: 6 mg of betamethasone (1 mL) Scanner: JayCut speed 4 slice VCT Dose reduction technique: ASIR (Adaptive statistical iterativereconstruction) and/or AEC (automated exposure control) Dose: total exam DLP 674 mGY per cm TECHNIQUE: Patient placed supine on the CT table and multiple axial imagesobtained of the cervical region. Once the appropriate level was localizedthe skin was marked, draped and prepped. Timeout performed and then localanesthetic administered. Under CT fluoroscopic guidance a 22-gauge spinal needle was advanced up tothe localized C6-C7 level using interlaminar approach. Small amount ofcontrast injected from the needle with initial imaging demonstratescontrast along the lamina. Needle than advanced with repeat injectiondemonstrating opacification of the epidural space. IMPRESSION: CT-guided C6-C7 interlaminar steroid injection. -------- FINAL REPORT -------- Dictated By: Gertrudis Odell Dictated Date: 07/26/2025 19:53 ET Assigned Physician: Gertrudis Odell Reviewed and Electronically Signed By: Gertrudis Odell Signed Date: 07/26/2025 19:57 ET Workstation ID: [id number] Transcribed By: Self Edit Transcribed Date: 07/26/2025 19:53 ET Michelle HANEY IMG IR PROCEDURES Final Re sult from Last 3 Months Insurance [facility] MEDICAID ADVANTAGE Care Teams Site Head Relationship Specialty Start Date End Date Elif Trjuillo MD [id number] [place] [address] PCP - General Internal Medicine 04/12/25
== END 2025-09-05 10:46 | disposition home or self-care (01) ==
LOC: HO.HSM 10:10
PROVIDERS: Visit Provider Nurse Practitioner
DX: G93.2 Benign intracranial hypertension (principal); G43.709 Chronic migraine without aura, not intractable, without status migrainosus; G44.209 Tension-type headache, unspecified, not intractable; M54.81 Occipital neuralgia
CPT/HCPCS: 99214

== ENCOUNTER → 2025-09-05 10:10 | Outpatient (BNVA) | payer OTHER, SELFPAY | PROVIDERS: Visit Provider Nurse Practitioner | DX: G93.2 Benign intracranial hypertension (principal); G43.709 Chronic migraine without aura, not intractable, without status migrainosus; G44.209 Tension-type headache, unspecified, not intractable; M54.81 Occipital neuralgia | CPT/HCPCS: 99212 ==